=== PATIENT | female | born 1950 | race Caucasian/White ===

== ENCOUNTER 2017-04-12 23:17 | Inpatient (IN) | payer OTHER ==
[~2017-04-12] VITALS: Ht 152.4 cm; Wt 54.4 kg
[2017-04-13 01:37] LABS: BASOPHIL % 0.2 % (0-2); PLATELET COUNT 352 x10^3mcL (130-400)
[2017-04-13 01:46] LABS: CALCIUM 9.3 mg/dL (8.5-10.1); CARBON DIOXIDE 26.3 mmol/L (21-32); CHLORIDE SERUM 94 mmol/L (98-107); CREATININE SERUM 0.5 mg/dL (0.6-1.0); GFR1 > 60 mL/min; GLUCOSE SERUM 113 mg/dL (74-106); POTASSIUM SERUM 3.4 mmol/L (3.5-5.1); SODIUM SERUM 132 mmol/L (136-145)
[2017-04-13 01:51] LABS: ALBUMIN 3.4 g/dL (3.4-5.0); ALKALINE PHOSPHATASE 169 U/L (46-116); ALT/SGPT 20 U/L (14-59); AST/SGOT 40 U/L (15-37); BILIRUBIN TOTAL 0.58 mg/dL (0.20-1.00); TOTAL PROTEIN, SERUM 7.3 g/dL (6.4-8.2)
[2017-04-13 02:05] LABS: CK-MB 23.9 ng/mL (0-3.6)
[2017-04-13] MEDS ORDERED: BUSPIRONE HCL30 MG PO (04:54)
[2017-04-13] MEDS ORDERED: SYNTHROID0.137 MG PO (04:54)
[2017-04-13] MEDS ORDERED: PROMETHAZINE HC25 M1 PO (04:55)
[2017-04-13] MEDS ORDERED: CYMBALTA60 M1 PO (04:55)
[2017-04-13 05:21] LABS: T3 TOTAL 0.59 ng/mL
[2017-04-13 05:37] LABS: MAGNESIUM 1.6 mg/dL (1.8-2.4); PHOSPHOROUS 4.6 mg/dL (2.5-4.9)
[2017-04-13 05:44] LABS: FREE T4 1.25 ng/dL (0.76-1.46); FREE THYROXINE INDEX 3.6 ug/dL (1.4-4.5); T4(THYROXINE) 9.8 ug/dL (4.7-13.3)
[2017-04-13 06:06] VITALS: BP 126/72
[2017-04-13 06:35] VITALS: BP 126/78
[2017-04-13 10:24] VITALS: BP 127/68
[2017-04-13 11:55] LABS: CALCIUM 8.6 mg/dL (8.5-10.1); CARBON DIOXIDE 26.9 mmol/L (21-32); CHLORIDE SERUM 96 mmol/L (98-107); CREATININE SERUM 0.6 mg/dL (0.6-1.0); GFR1 > 60 mL/min; GLUCOSE SERUM 111 mg/dL (74-106); POTASSIUM SERUM 3.5 mmol/L (3.5-5.1); SODIUM SERUM 130 mmol/L (136-145)
[2017-04-13 13:49] VITALS: BP 134/73
[2017-04-13 17:01] VITALS: BP 107/65
[2017-04-13 18:22] LABS: UA SPECIFIC GRAVITY 1.025 (1.005-1.035); microscopic required? YES; urine erythrocyte 2+ (NEGATIVE)
[2017-04-13 18:30] LABS: AMPHETAMINE QUAL UR NONE DETECTED (NEG <=1000)
[2017-04-13 20:49] VITALS: BP 117/67
[2017-04-14 05:25] VITALS: BP 152/82
[2017-04-14 06:22] LABS: CALCIUM 8.6 mg/dL (8.5-10.1); CARBON DIOXIDE 25.7 mmol/L (21-32); CHLORIDE SERUM 102 mmol/L (98-107); CREATININE SERUM 0.5 mg/dL (0.6-1.0); GFR1 > 60 mL/min; GLUCOSE SERUM 93 mg/dL (74-106); MAGNESIUM 2.5 mg/dL (1.8-2.4); POTASSIUM SERUM 3.4 mmol/L (3.5-5.1); SODIUM SERUM 135 mmol/L (136-145)
[2017-04-14 06:34] LABS: BASOPHIL % 0.3 % (0-2); PLATELET COUNT 286 x10^3mcL (130-400)
[2017-04-14 06:35] LABS: RED CELL DISTRIBUTION WIDTH 18.6 % (11.5-14.5)
[2017-04-14 10:00] VITALS: BP 140/66
[2017-04-14 14:00] VITALS: BP 124/71
[2017-04-14 21:00] VITALS: BP 136/81
[2017-04-15 06:27] VITALS: BP 148/79
[2017-04-15 06:48] LABS: CALCIUM 8.3 mg/dL (8.5-10.1); CHLORIDE SERUM 100 mmol/L (98-107); CREATININE SERUM 0.4 mg/dL (0.6-1.0); GFR1 > 60 mL/min; GLUCOSE SERUM 86 mg/dL (74-106); POTASSIUM SERUM 3.2 mmol/L (3.5-5.1); SODIUM SERUM 130 mmol/L (136-145)
[2017-04-15 09:56] VITALS: BP 161/78
[2017-04-15 17:07] VITALS: BP 101/98
[2017-04-15 19:50] VITALS: BP 166/95
[2017-04-15 22:45] VITALS: BP 148/73
[2017-04-16 06:00] LABS: BASOPHIL % 0.2 % (0-2); PLATELET COUNT 277 x10^3mcL (130-400)
[2017-04-16 06:09] LABS: RED CELL DISTRIBUTION WIDTH 18.1 % (11.5-14.5)
[2017-04-16 06:15] LABS: CALCIUM 8.5 mg/dL (8.5-10.1); CARBON DIOXIDE 24.6 mmol/L (21-32); CHLORIDE SERUM 98 mmol/L (98-107); CREATININE SERUM 0.4 mg/dL (0.6-1.0); GFR1 > 60 mL/min; GLUCOSE SERUM 92 mg/dL (74-106); POTASSIUM SERUM 3.3 mmol/L (3.5-5.1); SODIUM SERUM 129 mmol/L (136-145)
[2017-04-16 07:09] LABS: rbc morphology (normal/abnorm) ABNORMAL (NORMAL)
[2017-04-16 08:30] VITALS: BP 168/98
[2017-04-16 10:30] VITALS: BP 132/77
[2017-04-16 18:33] VITALS: BP 136/88
[2017-04-16 20:04] VITALS: BP 123/73
[2017-04-17 06:18] LABS: CALCIUM 8.3 mg/dL (8.5-10.1); CARBON DIOXIDE 23.9 mmol/L (21-32); CHLORIDE SERUM 95 mmol/L (98-107); CREATININE SERUM 0.3 mg/dL (0.6-1.0); GFR1 > 60 mL/min; GLUCOSE SERUM 98 mg/dL (74-106); POTASSIUM SERUM 3.7 mmol/L (3.5-5.1); SODIUM SERUM 130 mmol/L (136-145)
[2017-04-17 06:37] VITALS: BP 148/87
[2017-04-17 06:50] LABS: PLATELET COUNT 336 x10^3mcL (130-400)
[2017-04-17 06:51] LABS: BASOPHIL % 0 % (0-2); RED CELL DISTRIBUTION WIDTH 17.9 % (11.5-14.5)
[2017-04-17 07:26] VITALS: BP 114/81
[2017-04-17 16:29] VITALS: BP 117/73
[2017-04-17 21:09] VITALS: BP 116/70
[2017-04-18 05:45] VITALS: BP 137/77
[2017-04-18 05:53] LABS: CALCIUM 8.3 mg/dL (8.5-10.1); CARBON DIOXIDE 25.6 mmol/L (21-32); CHLORIDE SERUM 101 mmol/L (98-107); CREATININE SERUM 0.4 mg/dL (0.6-1.0); GFR1 > 60 mL/min; GLUCOSE SERUM 98 mg/dL (74-106); POTASSIUM SERUM 3.9 mmol/L (3.5-5.1); SODIUM SERUM 135 mmol/L (136-145)
[2017-04-18 06:25] LABS: BASOPHIL % 0.5 % (0-2); PLATELET COUNT 359 x10^3mcL (130-400)
[2017-04-18 07:14] LABS: RED CELL DISTRIBUTION WIDTH 18.3 % (11.5-14.5)
[2017-04-18 09:09] VITALS: BP 152/91
[2017-04-18 18:17] VITALS: BP 134/81
[2017-04-18 20:28] VITALS: BP 120/76
[2017-04-19 05:00] VITALS: BP 134/85
[2017-04-19 10:06] VITALS: BP 135/83
[2017-04-19] MEDS ORDERED: TYL325 PO (10:58)
[2017-04-19] MEDS ORDERED: LAC PO (10:59)
[2017-04-19] MEDS ORDERED: LEVOFLOXACIN500 M1 PO (11:00)
[2017-04-19 13:20] VITALS: BP 135/83
== END 2017-04-19 20:23 | DRG 177 ==
LOC: ED 23:17 → DU 04-13 02:47 → MU 04-13 02:47 → DU 04-13 04:56 → MU 04-15 07:56
PROVIDERS: Emergency Medicine; Family Medicine; ADMIT Family Medicine
DX: J69.0 Pneumonitis due to inhalation of food and vomit (principal); N17.0 Acute kidney failure with tubular necrosis; G93.41 Metabolic encephalopathy; E87.1 Hypo-osmolality and hyponatremia; F32.3 Major depressive disorder, single episode, severe with psychotic features; E86.0 Dehydration; E87.6 Hypokalemia; E87.8 Other disorders of electrolyte and fluid balance, not elsewhere classified; M06.9 Rheumatoid arthritis, unspecified; E78.5 Hyperlipidemia, unspecified; M17.0 Bilateral primary osteoarthritis of knee; Z92.3 Personal history of irradiation; Z68.23 Body mass index [BMI] 23.0-23.9, adult; Z85.850 Personal history of malignant neoplasm of thyroid
CPT/HCPCS: 82962; 83880; 84439; 97110-GP; 97116-GP; 97530-GP; J1956; J2270; J3475; J3490; J7030; Q0092